=== PATIENT | male | born 1995 | race American Indian/Alaskan Native ===

== ENCOUNTER 2025-06-26 12:35 | Emergency (ER) | payer SELFPAY ==
[2025-06-26 12:54] VITALS: BP 146/89; PULSE 121; RESP 20; TEMP 36.4; O2SAT 95
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
[2025-06-26 12:55] VITALS: BMI 32.1
== END 2025-06-26 13:22 ==
PROVIDERS: Emergency Provider Family Medicine
DX: Z02.89 Encounter for other administrative examinations (principal)
CPT/HCPCS: 99281